=== PATIENT | male | born 1970 | race Caucasian/White ===

== ENCOUNTER 2018-09-16 00:35 | Observation (INO) ==
[2018-09-16] MEDS ORDERED: Naloxone 0.4 MG/ML INJ IVP PRN (05:24)
[2018-09-16] MEDS ORDERED: D5% in Water 1,000 ML IVC PRN (05:26)
[2018-09-16] MEDS ORDERED: Dextrose Gel 15 GM/37.5 ML TUBE PO PRN ×2 (05:26)
[2018-09-16] MEDS ORDERED: *HR* Dextrose 50 % in Water (Syg) 50 ML SYRINGE IVP PRN (05:26)
--- NOTE | 2018-09-16 05:43 | Internal Med History&Physical ---
Date of Encounter: 09/16/18 Time of Encounter: 04:30 Internal Medicine - H&P: HPI Chief complaint: Chest Pain Admitted From: Hospital to Hospital Transfer Plans for Post Hospital Care: Home History of present illness: Mr. Leblanc is a 47 year old male with past medical history significant for hypertension, hyperlipidemia, and diabetes who presents as a hospital transfer from [facility] for complaints of left sided chest pain starting yesterday that he describes as pressure like and sharp, radiating through to his back, and rated at 10/10 when at its worst. Pain is exacerbated with movement and deep breathing and improved with rest. Due to pain and elevated blood pressure with systolic in the 180's at home, he decided to seek further medical attention at [facility]. Sending facility reported EKG as sinus rhythm with st elevation less than 1 millisecond in lead V1. Sending ER did not send chest xray results so called facility and they reported xray findings as no acute disease. Received ibuprofen at sending ER which patient denies helping pain. Also took full dose aspirin at home prior to arrival at sending facility. Sending facility obtained CBC, CMP, troponin, and lipase which were unremarkable bedsides a glucose of 252 and a ALT of 85. Denies any previous history of stress testing or echocardiogram. Currently denies any headache, chest pain, shortness of breath, cough, nausea, abdominal pain, bowel or bladder changes. Reports family history of CAD in both parents. Denies any current alcohol, tobacco, or drug use but does report previous tobacco abuse 20 years ago for 10 years. Checks blood sugars regularly at home and reports they have been averaging 200. Also checks blood pressure regularly at home and reports it has been averaging in the 130's systolic until yesterday. Follows regularly with PCP every three months. Past Med Surg Social Fam HX - Past Medical History Medical history: diabetes, hyperlipidemia, hypertension Psychiatric history: no psych history - Past Surgical History Surgical History: no surgical history - Social History Smoking Status: Former smoker Smokeless Tobacco Status: No Alcohol use: none Drug use: none - Family History Mother Age: 75 Living Status: Still Living Hx Family Cardiac Disorders: Yes (CABG) Hx Family Endocrine Disorder: Yes (DM-2) Hx Family Medical Disorders: Yes (HTN, HLD) Father Living Status: Age at : 49 Cause of : DC Hx Family Cardiac Disorders: Yes (DC) Internal Medicine - H&P: Meds Aspirin [Lo-Dose Aspirin EC] 81 mg PO DAILY 09/16/18 [History] Insulin ASPART [NovoLOG] 6 unit SQ TIDWM 09/16/18 [History] Insulin DETEMIR [Levemir] 20 unit SQ DAILY 09/16/18 [History] Insulin DETEMIR [Levemir] 20 unit SQ HS 09/16/18 [History] Lisinopril [Zestril] 20 mg PO DAILY 09/16/18 [History] Pravastatin Sodium [Pravachol] 40 mg PO HS 09/16/18 [History] Allergy/AdvReac Type Severity Reaction Status Date / Time etodolac [From Lodine] AdvReac Muscle Pain Verified 11/01/15 07:26 naproxen [From Naprosyn] AdvReac Muscle Pain Verified 09/16/18 03:05 All Systems PM: A 10-system review of systems was performed and is negative for pertinent findings except as documented above in the HPI. - Constitutional Vitals: Temp Pulse Resp BP Pulse Ox 97.5 F L 77 14 164/85 98 09/16/18 02:09 09/16/18 02:09 09/16/18 02:09 09/16/18 02:09 09/16/18 02:20 Exam: General: Alert and oriented. Skin:Normal color, no rash, no lesions. HEENT:Pupils equal, round and reactive. Cardiovascular:Normal S1 & S2, no rubs, murmurs or gallops. No JVD. Pulse regular. Chest non tender to palpation. Lungs:Breath sounds decreased, no wheezes or crackles. Abdomen:Soft, non-tender, no rigidity. Extremities:No deformity, no edema or tenderness, no joint swelling or clubbing. Neurological:Normal cognition and motor skills. Pulses:Carotid and radial pulses normal +2. Rest of the physical exam is non contributory. Internal Med - H&P Results - Labs CBC & Chem 7: 09/16/18 05:27 09/16/18 05:27 - Assessment and Plan (1) Chest pain Current Visit: Yes Status: Acute Assessment and plan: Description of pain sounds more musculoskeletal, however sending ER reported EKG with slight ST elevation in lead V1, will order repeat EKG. Initial troponin negative at sending ER, serial troponins ordered. Continuous cardiac monitoring. Echocardiogram ordered. Consider cardiology consult for any abnormal findings. Qualifiers: Chest pain type: unspecified Qualified Code(s): R07.9 - Chest pain, unspecified (2) Elevated alanine aminotransferase (ALT) level Current Visit: Yes Status: Acute Assessment and plan: No previous labs for comparison, sending ER labs show elevated at 85. Repeat labs ordered. (3) Diabetes mellitus Current Visit: Yes Status: Chronic Assessment and plan: Hold home diabetic medications. Sliding scale insulin ordered. Accucheck q6 hours. Qualifiers: Qualified Code(s): E11.9 - Type 2 diabetes mellitus without complications (4) Hypertension Current Visit: Yes Status: Chronic Assessment and plan: Continue home medications. Qualifiers: Hypertension type: unspecified Qualified Code(s): I10 - Essential (primary) hypertension (5) Hyperlipidemia Current Visit: Yes Status: Chronic Assessment and plan: Continue home medications. Qualifiers: Hyperlipidemia type: unspecified Qualified Code(s): E78.5 - Hyperlipidemia, unspecified - Time Spent With Patient Total time spent is greater than 50% in coordination of care (as documented) at patient's floor/unit and/or counseling patient:
[2018-09-16 05:57] LABS: Hematocrit 36.3 % (37.5-50.1); Hemoglobin 12.5 g/dL (12.9-16.9); Mean Corpuscular HGB Conc 34.4 g/dL (31.6-35.5); Mean Corpuscular Hemoglobin 30.2 pg (28.0-33.3); Mean Corpuscular Volume 87.7 fL (83.0-100.0); Mean Platelet Volume 9.9 fL (9.4-12.4); Platelet Count 175 K/mcL (140-400); Red Blood Count 4.14 M/mcL (4.19-5.50); Red Cell Distribution Width 11.9 % (11.5-14.5)
[2018-09-16] MEDS ORDERED: *HR* Heparin 5,000 UNIT/ML VIAL SQ SCH (06:00)
[2018-09-16] MEDS: Insulin LISPRO 300 UNITS/3 ML VIAL SQ SCH ×2 (06:03→13:41)
[2018-09-16 06:19] LABS: Alanine Aminotransferase 48 Units/L (7-52); Albumin 3.7 g/dL (3.5-5.7); Albumin/Globulin Ratio 1.9 (1.1-2.2); Alkaline Phosphatase 54 Units/L (34-104); Aspartate Amino Transferase 24 Units/L (13-39); BUN/Creatinine Ratio 18 (6-26); Bilirubin,Total 0.4 mg/dL (0.3-1.0); Blood Urea Nitrogen 18 mg/dL (6-20); Calcium 9.3 mg/dL (8.6-10.3); Carbon Dioxide 30 mEq/L (23-29); Chloride 106 mEq/L (98-107); Glucose 54 mg/dL (70-105); Osmolality,Calculated 297 (280-300); Potassium 3.7 mEq/L (3.5-5.1); Sodium 144 mEq/L (136-145); Total Protein 5.7 g/dL (6.4-8.9); eGFR For Non-African Americans > 60 (> 60)
[2018-09-16 07:57] VITALS: BP 135/73
[2018-09-16] MEDS ORDERED: Lisinopril 20 MG TABLET PO SCH (09:00)
[2018-09-16] MEDS ORDERED: Aspirin Enteric Coated 81 MG Tablet PO SCH (09:00)
--- NOTE | 2018-09-16 15:08 | Discharge Summary ---
- NOTES TO OUTPATIENT PROVIDER Notes to Outpatient Provider: Follow up with PCP in one week. Orders not resulted at time of discharge: Pending orders 09/16/18 06:44 EKG [ECG 12 lead ECG] [ECG] Routine 09/16/18 09:14 NM satish perf SPECT multi [NM] Routine Date of Encounter: 09/16/18 Time of Encounter: 15:03 - Discharge Diagnosis (1) Chest pain Priority: Primary Status: Acute Qualifiers: Chest pain type: unspecified Qualified Code(s): R07.9 - Chest pain, unspecified (2) Left shoulder pain Priority: Primary Status: Acute Qualifiers: Chronicity: acute Qualified Code(s): M25.512 - Pain in left shoulder (3) Diabetes mellitus Priority: Secondary Status: Chronic Qualifiers: Diabetes mellitus type: type 2 Diabetes mellitus ferry terminal agent insulin use: with ferry terminal agent use Diabetes mellitus complication status: without complication Qualified Code(s): E11.9 - Type 2 diabetes mellitus without complications; Z79.4 - longterm (current) use of insulin (4) Hypertension Priority: Secondary Status: Chronic Qualifiers: Hypertension type: unspecified Qualified Code(s): I10 - Essential (primary) hypertension (5) Elevated alanine aminotransferase (ALT) level Priority: Secondary Status: Acute (6) Hyperlipidemia Priority: Secondary Status: Chronic Qualifiers: Hyperlipidemia type: unspecified Qualified Code(s): E78.5 - Hyperlipidemia, unspecified Hospital course: Mr. Leblanc is a 47 year old male with past medical history significant for hypertension, hyperlipidemia, and diabetes who went to [facility] with complain of sudden onset left shoulder pain and radiated to his left chest region. At [facility] he happened to have non specific EKG changes, also he noted to have significant family history of CAD so patient was transferred to our hospital for further care. Patient was admitted in the hospital and placed him on cardiac rehabilitation specialist. His his serial troponin came back as negative. Since he is high risk for ACS with his multiple risk factors hypertension, hyperlipidemia, diabetes and significant family history he did go for nuclear stress test which came back as negative for ischemia/infarction. His shoulder pain seems to be most likely due to arthritis / musculoskeletal pain. Recommend to use anti- inflammatory medication and local supportive care. Will discharge him home in a stable condition today. - Time Spent with Patient Total time spent providing and/or coordinating discharge services: - Discharge Medications Prescriptions: Continued Insulin DETEMIR [Levemir] 20 unit SQ DAILY Insulin DETEMIR [Levemir] 20 unit SQ HS Insulin ASPART [NovoLOG] 6 unit SQ TIDWM Pravastatin Sodium [Pravachol] 40 mg PO HS Lisinopril [Zestril] 20 mg PO DAILY Aspirin [Lo-Dose Aspirin EC] 81 mg PO DAILY Home Medications: Aspirin [Lo-Dose Aspirin EC] 81 mg PO DAILY 09/16/18 [History] Insulin ASPART [NovoLOG] 6 unit SQ TIDWM 09/16/18 [History] Insulin DETEMIR [Levemir] 20 unit SQ DAILY 09/16/18 [History] Insulin DETEMIR [Levemir] 20 unit SQ HS 09/16/18 [History] Lisinopril [Zestril] 20 mg PO DAILY 09/16/18 [History] Pravastatin Sodium [Pravachol] 40 mg PO HS 09/16/18 [History] Allergies/Adverse Reactions: Allergy/AdvReac Type Severity Reaction Status Date / Time etodolac [From Lodine] AdvReac Muscle Pain Verified 11/01/15 07:26 naproxen [From Naprosyn] AdvReac Muscle Pain Verified 09/16/18 03:05 Date of admission: 09/16/18 01:52 Primary care physician: PCP NONE - Constitutional Vitals: Temp Pulse Resp BP Pulse Ox 98.0 F 76 18 135/73 98 09/16/18 07:53 09/16/18 07:53 09/16/18 07:53 09/16/18 07:53 09/16/18 07:53 General appearance: Present: cooperative, A&O X 3, no acute distress, answers questions appropriately Exam: Gen: Alert, awake, Oriented to time,place and person Chest: Diminished breath sounds B/L, No wheezing, No crackles, No rales Heart: S1S2+ RRR No murmurs Abd: Soft, NT, BS +, No organomegaly Ext: No edema, pulses are palpable, No calf tenderness Neuro : Benign findings Skin: No rash. - Patient Status Disposition: Home, Self-Care Condition: Good Overall status at discharge: patient is back to baseline - Discharge Instructions Follow Up With: Ulices Paris, [employer]ID[employer] TEACHER [Advanced Practice Nurse] - - Diet and Activity Activity: increase activity as tolerated Diet: low salt diet
== END 2018-09-16 15:36 | disposition home or self-care (01) ==
LOC: 3BNU → SUATTDRO 01:52
PROVIDERS: ADMIT Family Medicine; ATTEND Family Medicine